=== PATIENT | male | born 2005 | race Caucasian/White ===

== ENCOUNTER → 2025-10-18 | Emergency (ER) | payer OTHER ==
[~2025-10-18] VITALS: Ht 170.2 cm; Wt 81.8 kg
[2025-10-18 23:59] VITALS: BP 140/85; PULSE 99; RESP 18; TEMP 97.705256; O2SAT 98
== END | disposition still patient (30) ==
LOC: EMS 22:35
DX: R00.2 Palpitations (principal); R07.89 Other chest pain; F14.90 Cocaine use, unspecified, uncomplicated; F17.210 Nicotine dependence, cigarettes, uncomplicated
CPT/HCPCS: 93005; 99283